=== PATIENT | female | born 1955 ===

== ENCOUNTER 2018-11-29 03:00 | Emergency (ER) | payer OTHER ==
[~2018-11-29] VITALS: Ht 162.6 cm; Wt 73.5 kg
[2018-11-29 03:25] VITALS: BP 177/92
[2018-11-29] MEDS ORDERED: cloNIDine HCL 0.1 MG TAB PO ONE (03:30)
[2018-11-29 04:26] LABS: Urine Bacteria NONE SEEN /hpf (None Seen); Urine Blood Negative /uL (Negative); Urine Specific Gravity 1.012 (1.001-1.035); Urine WBC 2 /hpf (0 - 5)
[2018-11-29 04:43] LABS: Basophils # (auto) 0 uL; Basophils % (auto) 0.6 % (0.0-2.0); Eosinophils # (auto) 0.4 uL; Eosinophils % (auto) 4.6 % (0.0-7.0); Hematocrit 37.6 % (36.0-46.0); Lymphocytes # (auto) 2.3 uL; Lymphocytes % (auto) 29.6 % (10.0-50.0); Mean Corpuscular Hemoglobin 32.6 pg (28.0-32.0); Mean Corpuscular Hgb Conc. 34.5 g/dL (32.0-36.0); Mean Corpuscular Volume 94.5 fL (80.0-100.0); Monocytes # (auto) 0.8 uL; Monocytes % (auto) 10.5 % (0.0-12.0); Neutrophils # (auto) 4.2 uL; Neutrophils % (auto) 54.7 % (37.0-80.0); Platelet Count (auto) 234 10^3/uL (140-450); Red Blood Cells 3.98 10^6/uL (4.0-5.20); Red Cell Distribution Width 13.8 % (11.8-14.3); White Blood Cell 7.7 10^3/uL (4.4-10.8)
[2018-11-29 05:01] LABS: Anion Gap 10 (5-15); Blood Urea Nitrogen 20 mg/dL (7-18); Calcium 8.9 mg/dL (8.5-10.1); Carbon Dioxide 24 mmol/L (21-32); Chloride 101 mmol/L (98-107); Glucose 112 mg/dL (74-106); Magnesium 2.3 mg/dL (1.6-2.6); Potassium 3.8 mmol/L (3.5-5.1); Sodium 135 mmol/L (136-145)
[2018-11-29 05:02] LABS: INR 0.96 (0.9-1.15); Partial Thromboplastin Time 26.4 sec (23.64-32.05)
[2018-11-29 05:06] LABS: Alanine Aminotransferase 30 U/L (13-56); Alkaline Phosphatase 91 U/L (45-117); Aspartate Aminotransferase 27 U/L (15-37); BUN/Creatinine Ratio 26.3; Bilirubin, Total 0.3 mg/dL (0.2-1.0); GFR African American 99 mL/min; GFR Non-African American 81 mL/min; Total Protein 7.8 g/dL (6.4-8.2)
== END 2018-11-29 05:45 | disposition left against medical advice (07) ==
LOC: ER 03:08
DX: R06.02 Shortness of breath (principal); M54.9 Dorsalgia, unspecified; Z53.21 Procedure and treatment not carried out due to patient leaving prior to being seen by health care provider
CPT/HCPCS: 36415; 71046; 80053; 81001; 83735; 83880; 84484; 85025; 85610; 85730; 93005